=== PATIENT | male | born 1940 | race Caucasian/White ===

== ENCOUNTER 2021-04-18 10:31 | Emergency (ER) | payer OTHER ==
[2021-04-18 11:24] LABS: HEMOGLOBIN 14.7 gm/dl (14.0-17.5); RED BLOOD COUNT 4.96 M/UL (4.20-5.50); WHITE BLOOD COUNT 11.3 K/UL (4.5-11.0)
[2021-04-18 12:09] LABS: BUN/CREATININE RATIO 23 (0-10)
== END 2021-04-18 12:59 | disposition home or self-care (01) ==
LOC: ER1 10:31
PROVIDERS: Physician Assistant
DX: I10 Essential (primary) hypertension (principal); E78.5 Hyperlipidemia, unspecified; Z79.82 Long term (current) use of aspirin; Z88.2 Allergy status to sulfonamides; Z88.5 Allergy status to narcotic agent; Z20.822 Contact with and (suspected) exposure to COVID-19
CPT/HCPCS: 71045; 80053; 81001; 83880; 84484; 85025; 93005; 99284; U0002